=== PATIENT | female | born 1950 | race Caucasian/White ===

== ENCOUNTER 2017-03-03 23:18 | Inpatient (IN) | payer MEDICARE, BC ==
[~2017-03-03] VITALS: Ht 154.9 cm; Wt 92.1 kg
[~2017-03-03 23:18] MED LIST: ALBUTEROL2.5 MG/3 M INH; LOSARTAN POTASS25 MG ORAL
[2017-03-03] MEDS ORDERED: Acetaminophen 650 MG SUPP RECTAL ONE ×2 (23:24→23:30)
[2017-03-03] MEDS ORDERED: Solu-MEDROL 125mg Inj IVP ONE (23:30)
[2017-03-03] MEDS ORDERED: Albuterol ud Inhalation HHN ONE (23:30)
[2017-03-03] MEDS ORDERED: Ipratropium 0.02% Inh Soln 2.5ml UD HHN ONE (23:30)
[2017-03-03 23:35] VITALS: BP 82/46
[2017-03-03 23:37] LABS: BASOPHILS % (AUTO) 0.6 % (0.0-2.0); EOSINOPHILS % (AUTO) 0.3 % (0.0-3.0); MEAN CORPUSCULAR HEMOGLOBIN 32.2 PG (27.0-31.0); MEAN CORPUSCULAR VOLUME 101 FL (80-99); MEAN PLATELET VOLUME 7.6 FL (6.5-10.1); MONOCYTES % (AUTO) 5.2 % (1.0-10.0); NEUTROPHILS % (AUTO) 77.9 % (45.0-75.0); PLATELET COUNT 363 K/UL (150-450); RED BLOOD COUNT 5.21 M/UL (4.20-5.40); RED CELL DISTRIBUTION WIDTH 12.9 % (11.6-14.8); WHITE BLOOD COUNT 9.8 K/UL (4.8-10.8)
[2017-03-03 23:38] LABS: APPEARANCE,URINE SLIGHTLY CLOUDY; KETONES,URINE 1+ (NEGATIVE); LEUKOCYTE ESTERASE ,URINE 1+ (NEGATIVE); NITRITE,URINE POSITIVE (NEGATIVE); PH,URINE 5 (4.5-8.0); PROTEIN,URINE 2+ (NEGATIVE); UROBILINOGEN,URINE 1 MG/DL (0.0-1.0)
--- NOTE | 2017-03-03 23:45 | Emergency Room Report ---
History of Present Illness General Chief Complaint: Dyspnea/Respdistress Source: Family Member, EMS, PMD Present Illness HPI This is a 66-year-old Ethiopian female with a history of hypertension, COPD continued to smoke. She's also noncompliant with her medication. Her said he unable to get her to see a DrRenu for a long period of time. She presents with chief complaint respiratory failure and respiratory arrest. Onset for the last couple weeks but worse tonight per her . She had a hard time breathing so he called 911. Per EMS on room air pulse ox was 80%. She was very lethargic. They placed on see Without much success. There brought her here. On arrival she was stuporous, pale, agonal respiration. She was intubated right away. History is from her . I also talked with Dr. Choi on the phone regarding her history. Allergies: Coded Allergies: No Known Allergies (Unverified , 03/03/17) Patient History Past Medical History: see triage record, old chart reviewed, HTN, asthma, COPD Past Surgical History: other Pertinent Family History: none Social History: Reports: smoking Now: No Immunizations: other Reviewed Nursing Documentation: PMH: Agreed, PSxH: Agreed Nursing Documentation-PMH Hx Hypertension: Yes Hx Asthma: Yes Hx COPD: Yes Review of Systems Constitutional: Reports: weakness Eye: Denies: blurred vision, eye pain ENT: Denies: ear pain, nose congestion, throat swelling Respiratory: Reports: cough, shortness of breath Cardiovascular: Denies: chest pain, palpitations Gastrointestinal: Denies: abdominal pain, diarrhea, nausea, vomiting Musculoskeletal: Denies: back pain, joint pain Skin: Denies: rash Neurological: Denies: headache, numbness Endocrine: Denies: increased thirst, increased urine Hematologic/Lymphatic: Denies: easy bruising All Other Systems: negative except mentioned in HPI Physical Exam Vital Signs Date Time Temp Pulse Resp B/P Pulse Ox O2 Delivery O2 Flow Rate FiO2 03/03/17 23:14 107 32 121/95 80 15.0 03/03/17 23:31 100 vitals with fever, tachycardia and hypoxia Sp02 EP Interpretation: abnormal General Appearance: severe distress, obese, Stupor Head: normocephalic, atraumatic Eyes: bilateral eye EOMI, bilateral eye PERRL ENT: dry mucus membranes Neck: full range of motion, supple, no meningismus Respiratory: chest non-tender, decreased breath sounds, other - Severely diminished Cardiovascular #1: regular rate, rhythm, no murmur Gastrointestinal: normal bowel sounds, non tender, no mass, no organomegaly, no bruit, non-distended, other - Obese Musculoskeletal: back normal Neurologic: other - Unresponsive Skin: pallor, cyanosis Procedures Critical Care Time Critical Care Time Critical care is mandated in this patient who presented with respiratory arrest. Patient require my urgent intervention to attenuate the risks of respiratory collapse which may lead to cardiovascular collapse and . Critical care time is 75 minutes excluding any reportable procedure. Critical care time included evaluation, multiple reevaluation, looking at old charts, interpreting laboratory and diagnostic data, discussing case with patient and family and consultants, and charting. Intubation Intubation : Consent: Emergent Intubation Method: orotracheal Tube Size (cm): 7.5 Medications: Etomidate, Succinylcholine Breath Sounds after Intubation: equal Intubation Complications: no complications Post Intubation Xray: Yes Progress/Xray Impression: Endotracheal tube good position Attempts: One Patient Tolerated: Well Complications: None Medical Decision Making Diagnostic Impression: Primary Impression: Respiratory failure requiring intubation Additional Impressions: Respiratory failure with hypoxia Qualified Codes: J96.01 - Acute respiratory failure with hypoxia Metabolic acidosis Severe sepsis UTI (urinary tract infection) Qualified Codes: N30.00 - Acute cystitis without hematuria COPD with exacerbation Acute renal failure (ARF) Qualified Codes: N17.9 - Acute kidney failure, unspecified Proteinuria Morbid obesity with BMI of 40.0-44.9, adult Hyperkalemia, diminished renal excretion ER Course Patient presents with severe sepsis with multiorgan failure. She was intubated for airway protection. She is extremely acidotic. We'll collect acidosis and metabolic acidosis. Her hyperkalemia was treated. IV fluid given. Antibiotic started. She is slowly improving with increasing urination. She does have some movement. Diagnosis extremely poor. She is admitted to the ICU. Laboratory Tests Test 03/03/17 23:12 03/03/17 23:27 03/04/17 00:23 03/04/17 01:24 White Blood Count 9.8 K/UL (4.8-10.8) Red Blood Count 5.21 M/UL (4.20-5.40) Hemoglobin 16.8 G/DL (12.0-16.0) H Hematocrit 52.6 % (37.0-47.0) H Mean Corpuscular Volume 101 FL (80-99) H Mean Corpuscular Hemoglobin 32.2 PG (27.0-31.0) H Mean Corpuscular Hemoglobin Concent 32.0 G/DL (32.0-36.0) Red Cell Distribution Width 12.9 % (11.6-14.8) Platelet Count 363 K/UL (150-450) Mean Platelet Volume 7.6 FL (6.5-10.1) Neutrophils (%) (Auto) 77.9 % (45.0-75.0) H Lymphocytes (%) (Auto) 16.0 % (20.0-45.0) L Monocytes (%) (Auto) 5.2 % (1.0-10.0) Eosinophils (%) (Auto) 0.3 % (0.0-3.0) Basophils (%) (Auto) 0.6 % (0.0-2.0) Urine Color Yellow Urine Appearance Slightly cloudy Urine pH 5 (4.5-8.0) Urine Specific [place] 1.020 (1.005-1.035) Urine Protein 2+ (NEGATIVE) H Urine Glucose (UA) Negative (NEGATIVE) Urine Ketones 1+ (NEGATIVE) H Urine Occult Blood 1+ (NEGATIVE) H Urine Nitrite Positive (NEGATIVE) H Urine Bilirubin 1+ (NEGATIVE) H Urine Ictotest Negative Urine Urobilinogen 1 MG/DL (0.0-1.0) H Urine Leukocyte Esterase 1+ (NEGATIVE) H Urine RBC 0-2 /HPF (0 - 2) Urine WBC 0-2 /HPF (0 - 2) Urine Squamous Epithelial Cells Many /LPF (NONE/OCC) H Urine Bacteria Few /HPF (NONE) Sodium Level 133 mEQ/L (135-145) L 135 mEQ/L (135-145) Potassium Level 7.6 mEQ/L (3.4-4.9) *H 6.6 mEQ/L (3.4-4.9) *H Chloride Level 89 mEQ/L (98-107) L 97 mEQ/L (98-107) L Carbon Dioxide Level 7 mEQ/L (20-30) *L 6 mEQ/L (20-30) *L Anion Gap 37 (5-15) H 32 (5-15) H Blood Urea Nitrogen 37 mg/dL (7-23) H 33 mg/dL (7-23) H Creatinine 3.9 mg/dL (0.5-0.9) H 3.3 mg/dL (0.5-0.9) H Estimat Glomerular Filtration Rate 11.5 mL/min (>60) 13.9 mL/min (>60) Glucose Level 75 mg/dL (74-106) 122 mg/dL (74-106) H Lactic Acid Level 13.10 mmol/L (0.66-2.22) H 12.80 mmol/L (0.66-2.22) H Calcium Level 11.9 mg/dL (8.6-10.2) H 9.7 mg/dL (8.6-10.2) Total Bilirubin 0.7 mg/dL (0.0-1.2) Aspartate Amino Transf (AST/SGOT) 114 U/L (5-40) H Alanine Aminotransferase (ALT/SGPT) 597 U/L (3-33) H Alkaline Phosphatase 108 U/L (35-104) H Total Creatine Kinase 773 U/L (26-140) H Creatine Kinase MB 5.0 ng/mL (< 3.8) H Creatine Kinase MB Relative Index 0.6 Troponin I < 0.30 ng/mL (<=0.30) Total Protein 7.7 g/dL (6.6-8.7) Albumin 3.5 g/dL (3.5-5.2) Globulin 4.2 g/dL Albumin/Globulin Ratio 0.8 (1.0-2.7) L Prothrombin Time 14.4 SEC (9.30-11.50) H Prothromb Time International Ratio 1.4 (0.9-1.1) H Activated Partial Thromboplast Time 36 SEC (23-33) H Lab Results Impression labs with severe acidosis, renal failure, hyperkalemia EKG Diagnostic Results Rate: normal, tachycardiac Rhythm: NSR ST Segments: no acute changes Rhythm Strip Diag. Results EP Interpretation: yes Rate: 110 Rhythm: NSR, no PVC's, no ectopy Chest X-Ray Diagnostic Results EP Interpretation: Yes Findings: no effusion, no pneumothorax, other - ETT and NGT in good position. Increased interstitial markings. Number of Views: 1 Last Vital Signs Date Time Temp Pulse Resp B/P Pulse Ox O2 Delivery O2 Flow Rate FiO2 03/03/17 23:38 100 03/03/17 23:31 82 16 03/03/17 23:14 121/95 80 15.0 Status: improved Disposition: ADMITTED INPATIENT Condition: Critical ROSEMARY COX M.D. Mar 03, 2017 23:45
[2017-03-03 23:48] LABS: BACTERIA,URINE FEW /HPF; ICTOTEST NEGATIVE; RBC,URINE 0-2 /HPF (0 - 2); SQUAMOUS EPITHELIAL CELL,UR MANY /LPF (NONE/OCC); WBC,URINE 0-2 /HPF (0 - 2)
[2017-03-03 23:52] LABS: ALBUMIN/GLOBULIN RATIO 0.8 (1.0-2.7); CALCIUM 11.9 mg/dL (8.6-10.2); CREATININE 3.9 mg/dL (0.5-0.9); GLOMERULAR FILTRATION RATE 11.5 mL/min (>60); TOTAL PROTEIN 7.7 g/dL (6.6-8.7); TROPONIN I < 0.30 ng/mL (<=0.30)
[2017-03-03 23:54] LABS: INR 1.4 (0.9-1.1); PROTHROMBIN TIME 14.4 SEC (9.30-11.50)
[2017-03-03] MEDS ORDERED: Zosyn 3.375gm inj ONE (23:56)
[2017-03-03 23:58] LABS: POTASSIUM 7.6 mEQ/L (3.4-4.9); REFLEX LACTIC ACID YES OR NO YES
[2017-03-04] VITALS (39 sets, daily range): BP systolic 0–251; BP diastolic 0–173
[2017-03-04] MEDS ORDERED: Piperacillin/Tazobactam 3.375 GM in NS 110 ML IVPB ONE ×2
[2017-03-04] MEDS ORDERED: Calcium Gluconate 1gm/10ml vial ONE ×2 (00:12→03:18)
[2017-03-04] MEDS ORDERED: Albuterol ud Inhalation HHN ONE (00:15)
[2017-03-04] MEDS ORDERED: Calcium Gluconate 10% 1 GM in NS 110 ML IVPB ONE (00:15)
[2017-03-04 01:08] LABS: ABG ALLEN TEST POSITIVE; ABG BASE EXCESS -27.5; ABG PCO2 27.5 mmHg (35.0-45.0)
[2017-03-04] MEDS ORDERED: Sodium Bicarbonate 8.4% 50ml Carp ONE ×2 (01:26→10:19)
[2017-03-04] MEDS ORDERED: Sodium Bicarbonate 8.4% 50ml Inj IV ONE ×2 (01:30→09:00)
[2017-03-04 01:56] LABS: CALCIUM 9.7 mg/dL (8.6-10.2); CREATININE 3.3 mg/dL (0.5-0.9); GLOMERULAR FILTRATION RATE 13.9 mL/min (>60)
[2017-03-04 02:04] LABS: POTASSIUM 6.6 mEQ/L (3.4-4.9)
[2017-03-04] MEDS ORDERED: Miralax 17gm pkt ORAL PRN (03:00)
[2017-03-04] MEDS ORDERED: LORazepam Inj 2mg/ml 1ml IV PRN (03:00)
[2017-03-04] MEDS ORDERED: DuoNeb 0.5-3(2.5)mg/3ml neb HHN PRN (03:00)
[2017-03-04] MEDS ORDERED: Sodium Polystyrene Sulfonate 15gm Powder ORAL ONE (03:00)
[2017-03-04] MEDS ORDERED: Morphine Sulfate 4mg/ml Inj IVP PRN (03:00)
[2017-03-04] MEDS ORDERED: Calcium Gluconate 1gm/10ml vial IVP ONE (03:00)
[2017-03-04] MEDS ORDERED: Levophed 4mg/4mL Inj IV ONE ×2 (03:31→04:15)
[2017-03-04] MEDS ORDERED: Vancomycin 1.5 GM in D5W 325 ML IVPB ONE (03:45)
[2017-03-04] MEDS ORDERED: Amikacin Rx to dose MISC PRN (03:45)
[2017-03-04] MEDS ORDERED: Ertapenem (INVanz) Inj ONE (04:10)
[2017-03-04] MEDS ORDERED: Ertapenem 0.5 GM in NS 55 ML IV SCH (05:00)
[2017-03-04 06:03] LABS: BASOPHILS % (AUTO) 1.5 % (0.0-2.0); EOSINOPHILS % (AUTO) 0.3 % (0.0-3.0); LYMPHOCYTES % (AUTO) 24.2 % (20.0-45.0); MEAN CORPUSCULAR HEMOGLOBIN 32.1 PG (27.0-31.0); MEAN CORPUSCULAR HGB CONC 31.3 G/DL (32.0-36.0); MEAN CORPUSCULAR VOLUME 103 FL (80-99); MEAN PLATELET VOLUME 7.2 FL (6.5-10.1); MONOCYTES % (AUTO) 4.7 % (1.0-10.0); NEUTROPHILS % (AUTO) 69.3 % (45.0-75.0); PLATELET COUNT 198 K/UL (150-450); RED BLOOD COUNT 3.74 M/UL (4.20-5.40); RED CELL DISTRIBUTION WIDTH 13.1 % (11.6-14.8); WHITE BLOOD COUNT 6.7 K/UL (4.8-10.8)
[2017-03-04 06:19] LABS: ALBUMIN/GLOBULIN RATIO 0.5 (1.0-2.7); CALCIUM 6.9 mg/dL (8.6-10.2); GLOMERULAR FILTRATION RATE 15.5 mL/min (>60); TOTAL PROTEIN 4.3 g/dL (6.6-8.7)
[2017-03-04 06:23] LABS: REFLEX LACTIC ACID YES OR NO YES
[2017-03-04 06:27] LABS: POTASSIUM 6.8 mEQ/L (3.4-4.9)
[2017-03-04] MEDS ORDERED: Heparin 5000 units/ml inj SUBQ SCH (09:00)
[2017-03-04] MEDS ORDERED: Heparin 2000 units/Ns 1000ml INJ ONE (09:00)
[2017-03-04] MEDS ORDERED: Lidocaine 1% Plain 30 ml INJ ONE (09:00)
[2017-03-04 09:45] LABS: EOSINOPHILS % (AUTO) 0.2 % (0.0-3.0); LYMPHOCYTES % (AUTO) 31.1 % (20.0-45.0); MEAN CORPUSCULAR HGB CONC 30.6 G/DL (32.0-36.0); MEAN CORPUSCULAR VOLUME 105 FL (80-99); MEAN PLATELET VOLUME 7.8 FL (6.5-10.1); MONOCYTES % (AUTO) 4.5 % (1.0-10.0); NEUTROPHILS % (AUTO) 63.2 % (45.0-75.0); PLATELET COUNT 104 K/UL (150-450); RED BLOOD COUNT 2.79 M/UL (4.20-5.40); RED CELL DISTRIBUTION WIDTH 13.6 % (11.6-14.8); WHITE BLOOD COUNT 7.5 K/UL (4.8-10.8)
[2017-03-04 09:55] LABS: CALCIUM 10.1 mg/dL (8.6-10.2); CREATININE 3.3 mg/dL (0.5-0.9); GLOMERULAR FILTRATION RATE 13.9 mL/min (>60)
[2017-03-04 10:01] LABS: POTASSIUM 7.5 mEQ/L (3.4-4.9)
--- NOTE | 2017-03-04 10:11 | History and Physical ---
History of Present Illness General Date patient seen: Mar 04, 2017 Reason for Hospitalization: Dyspnea/Respdistress Present Illness HPI 66-year-old female with a history of hypertension, COPD, noncompliant with her medication, presented with chief complaint respiratory failure and multi- organ failure. She has been sick for a few weeks but worse last night per her . She had a hard time breathing so he called 911. Per EMS on room air pulse ox was 80%. She was very lethargic. On arrival to ER she was stuporous , pale, agonal respiration. She was intubated right away. She coded twice already since admission. Currently she is comatose, on maxed out levophed drip. at the bed site. Allergies: Allergies: Coded Allergies: No Known Allergies (Unverified , 03/03/17) Medication History Scheduled Losartan Potassium* (Losartan Potassium*), 25 MG ORAL DAILY, (Reported) Scheduled PRN Albuterol Sulfate* (Albuterol Sulfate Hhn*), 3 ML INH Q6H PRN for Shortness of Breath, (Reported) Patient History Healthcare decision maker Silvano Resuscitation status Full Code Advanced Directive on File No Past Medical/Surgical History Past Medical/Surgical History: (1) HTN (hypertension) (2) COPD (chronic obstructive pulmonary disease) Review of Systems All Other Systems: negative except mentioned in HPI Physical Exam General Appearance: WD/WN, no apparent distress Lines, tubes and drains: peripheral HEENT: normocephalic Neck: non-tender, normal alignment Respiratory/Chest: chest wall non-tender, lungs clear Cardiovascular/Chest: normal peripheral pulses, normal rate Abdomen: normal bowel sounds, non tender Genitourinary/Rectal: normal genital exam, normal rectal exam Extremities: normal range of motion Last 24 Hour Vital Signs Date Time Temp Pulse Resp B/P Pulse Ox O2 Delivery O2 Flow Rate FiO2 03/04/17 09:10 128 16 100 03/04/17 07:39 74 17 100 03/04/17 07:30 97.3 74 16 97/63 74 Mechanical Ventilator 100 03/04/17 07:30 97/63 03/04/17 07:00 103/64 03/04/17 06:45 102 30 120/55 100 Mechanical Ventilator 60 03/04/17 06:30 102 30 61/18 100 Mechanical Ventilator 60 03/04/17 06:15 104 27 77/75 100 Mechanical Ventilator 60 03/04/17 06:00 104 27 122/75 100 Mechanical Ventilator 60 03/04/17 06:00 77/43 03/04/17 05:45 109 27 107/74 100 Mechanical Ventilator 60 03/04/17 05:30 109 29 138/96 100 Mechanical Ventilator 60 03/04/17 05:15 109 27 161/71 100 Mechanical Ventilator 60 03/04/17 05:09 109 24 60 03/04/17 05:00 107/74 03/04/17 05:00 109 27 180/119 100 Mechanical Ventilator 60 03/04/17 04:45 109 27 131/101 100 Mechanical Ventilator 60 03/04/17 04:30 92/50 03/04/17 04:30 106 27 99/67 100 Mechanical Ventilator 60 03/04/17 04:15 106 27 96/66 100 Mechanical Ventilator 60 03/04/17 04:00 98.5 03/04/17 04:00 106 27 96/66 100 Mechanical Ventilator 60 03/04/17 03:45 108 27 98/58 100 Mechanical Ventilator 60 03/04/17 03:30 108 27 88/61 100 Mechanical Ventilator 60 03/04/17 03:15 109 27 40/28 100 Mechanical Ventilator 60 03/04/17 03:06 110 28 60 03/04/17 03:00 109 27 75/24 100 Mechanical Ventilator 60 03/04/17 02:45 109 27 75/52 100 Mechanical Ventilator 60 03/04/17 02:30 109 27 69/24 100 Mechanical Ventilator 60 03/04/17 02:30 60 03/04/17 02:15 110 27 93/67 100 Mechanical Ventilator 60 03/04/17 02:08 109 03/04/17 02:00 98.7 110 25 136/89 100 Mechanical Ventilator 60 03/04/17 01:52 101.3 117 28 107/55 100 Mechanical Ventilator 15.0 60 03/04/17 01:52 101.3 117 28 107/55 100 Mechanical Ventilator 15.0 60 03/04/17 01:37 101.3 112 28 84/20 100 Mechanical Ventilator 15.0 60 03/04/17 01:17 15.0 60 03/04/17 01:15 107 28 100 Mechanical Ventilator 60 03/04/17 01:14 108 28 60 03/04/17 01:00 60 03/04/17 01:00 108 28 100 Mechanical Ventilator 60 03/04/17 00:49 101.3 105 16 128/91 100 Mechanical Ventilator 15.0 100 03/04/17 00:48 101.3 03/03/17 23:46 117 16 100 Mechanical Ventilator 100 03/03/17 23:38 100 03/03/17 23:35 104.4 117 16 82/46 100 Mechanical Ventilator 15.0 100 03/03/17 23:35 117 16 15.0 100 03/03/17 23:31 82 16 100 03/03/17 23:30 100 03/03/17 23:30 115 16 100 Mechanical Ventilator 100 03/03/17 23:14 107 32 121/95 80 15.0 Intake and Output 03/03/17 03/04/17 19:00 07:00 Intake Total 7877.0 ml Output Total 215 ml Balance 7662.0 ml Intake Oral 0 ml IV Total 4877.0 ml Other 3000 ml Output Urine Total 215 ml Laboratory Tests Test 03/03/17 23:12 03/03/17 23:27 03/04/17 00:23 03/04/17 01:24 White Blood Count 9.8 K/UL (4.8-10.8) Red Blood Count 5.21 M/UL (4.20-5.40) Hemoglobin 16.8 G/DL (12.0-16.0) H Hematocrit 52.6 % (37.0-47.0) H Mean Corpuscular Volume 101 FL (80-99) H Mean Corpuscular Hemoglobin 32.2 PG (27.0-31.0) H Mean Corpuscular Hemoglobin Concent 32.0 G/DL (32.0-36.0) Red Cell Distribution Width 12.9 % (11.6-14.8) Platelet Count 363 K/UL (150-450) Mean Platelet Volume 7.6 FL (6.5-10.1) Neutrophils (%) (Auto) 77.9 % (45.0-75.0) H Lymphocytes (%) (Auto) 16.0 % (20.0-45.0) L Monocytes (%) (Auto) 5.2 % (1.0-10.0) Eosinophils (%) (Auto) 0.3 % (0.0-3.0) Basophils (%) (Auto) 0.6 % (0.0-2.0) Urine Color Yellow Urine Appearance Slightly cloudy Urine pH 5 (4.5-8.0) Urine Specific [place] 1.020 (1.005-1.035) Urine Protein 2+ (NEGATIVE) H Urine Glucose (UA) Negative (NEGATIVE) Urine Ketones 1+ (NEGATIVE) H Urine Occult Blood 1+ (NEGATIVE) H Urine Nitrite Positive (NEGATIVE) H Urine Bilirubin 1+ (NEGATIVE) H Urine Ictotest Negative Urine Urobilinogen 1 MG/DL (0.0-1.0) H Urine Leukocyte Esterase 1+ (NEGATIVE) H Urine RBC 0-2 /HPF (0 - 2) Urine WBC 0-2 /HPF (0 - 2) Urine Squamous Epithelial Cells Many /LPF (NONE/OCC) H Urine Bacteria Few /HPF (NONE) Sodium Level 133 mEQ/L (135-145) L 135 mEQ/L (135-145) Potassium Level 7.6 mEQ/L (3.4-4.9) *H 6.6 mEQ/L (3.4-4.9) *H Chloride Level 89 mEQ/L (98-107) L 97 mEQ/L (98-107) L Carbon Dioxide Level 7 mEQ/L (20-30) *L 6 mEQ/L (20-30) *L Anion Gap 37 (5-15) H 32 (5-15) H Blood Urea Nitrogen 37 mg/dL (7-23) H 33 mg/dL (7-23) H Creatinine 3.9 mg/dL (0.5-0.9) H 3.3 mg/dL (0.5-0.9) H Estimat Glomerular Filtration Rate 11.5 mL/min (>60) 13.9 mL/min (>60) Glucose Level 75 mg/dL (74-106) 122 mg/dL (74-106) H Lactic Acid Level 13.10 mmol/L (0.66-2.22) H 12.80 mmol/L (0.66-2.22) H Calcium Level 11.9 mg/dL (8.6-10.2) H 9.7 mg/dL (8.6-10.2) Total Bilirubin 0.7 mg/dL (0.0-1.2) Aspartate Amino Transf (AST/SGOT) 114 U/L (5-40) H Alanine Aminotransferase (ALT/SGPT) 597 U/L (3-33) H Alkaline Phosphatase 108 U/L (35-104) H Total Creatine Kinase 773 U/L (26-140) H Creatine Kinase MB 5.0 ng/mL (< 3.8) H Creatine Kinase MB Relative Index 0.6 Troponin I < 0.30 ng/mL (<=0.30) Total Protein 7.7 g/dL (6.6-8.7) Albumin 3.5 g/dL (3.5-5.2) Globulin 4.2 g/dL Albumin/Globulin Ratio 0.8 (1.0-2.7) L Prothrombin Time 14.4 SEC (9.30-11.50) H Prothromb Time International Ratio 1.4 (0.9-1.1) H Activated Partial Thromboplast Time 36 SEC (23-33) H Test 03/04/17 05:50 03/04/17 09:20 White Blood Count 6.7 K/UL (4.8-10.8) 7.5 K/UL (4.8-10.8) Red Blood Count 3.74 M/UL (4.20-5.40) L 2.79 M/UL (4.20-5.40) L Hemoglobin 12.0 G/DL (12.0-16.0) 8.9 G/DL (12.0-16.0) L Hematocrit 38.4 % (37.0-47.0) 29.2 % (37.0-47.0) L Mean Corpuscular Volume 103 FL (80-99) H 105 FL (80-99) H Mean Corpuscular Hemoglobin 32.1 PG (27.0-31.0) H 32.0 PG (27.0-31.0) H Mean Corpuscular Hemoglobin Concent 31.3 G/DL (32.0-36.0) L 30.6 G/DL (32.0-36.0) L Red Cell Distribution Width 13.1 % (11.6-14.8) 13.6 % (11.6-14.8) Platelet Count 198 K/UL (150-450) 104 K/UL (150-450) L Mean Platelet Volume 7.2 FL (6.5-10.1) 7.8 FL (6.5-10.1) Neutrophils (%) (Auto) 69.3 % (45.0-75.0) 63.2 % (45.0-75.0) Lymphocytes (%) (Auto) 24.2 % (20.0-45.0) 31.1 % (20.0-45.0) Monocytes (%) (Auto) 4.7 % (1.0-10.0) 4.5 % (1.0-10.0) Eosinophils (%) (Auto) 0.3 % (0.0-3.0) 0.2 % (0.0-3.0) Basophils (%) (Auto) 1.5 % (0.0-2.0) 1.0 % (0.0-2.0) Sodium Level 139 mEQ/L (135-145) 140 mEQ/L (135-145) Potassium Level 6.8 mEQ/L (3.4-4.9) *H 7.5 mEQ/L (3.4-4.9) *H Chloride Level 103 mEQ/L (98-107) 101 mEQ/L (98-107) Carbon Dioxide Level 8 mEQ/L (20-30) *L 12 mEQ/L (20-30) L Anion Gap 28 (5-15) H 27 (5-15) H Blood Urea Nitrogen 32 mg/dL (7-23) H 30 mg/dL (7-23) H Creatinine 3.0 mg/dL (0.5-0.9) H 3.3 mg/dL (0.5-0.9) H Estimat Glomerular Filtration Rate 15.5 mL/min (>60) 13.9 mL/min (>60) Glucose Level 179 mg/dL (74-106) H 447 mg/dL (74-106) #H Lactic Acid Level 11.30 mmol/L (0.66-2.22) H Calcium Level 6.9 mg/dL (8.6-10.2) #L 10.1 mg/dL (8.6-10.2) # Total Bilirubin 0.9 mg/dL (0.0-1.2) Aspartate Amino Transf (AST/SGOT) 680 U/L (5-40) H Alanine Aminotransferase (ALT/SGPT) 548 U/L (3-33) H Alkaline Phosphatase 130 U/L (35-104) H Total Protein 4.3 g/dL (6.6-8.7) #L Albumin 1.5 g/dL (3.5-5.2) L Globulin 2.8 g/dL Albumin/Globulin Ratio 0.5 (1.0-2.7) L Height (Feet): 5 Height (Inches): 1.00 Weight (Pounds): 203 Medications Current Medications Medications (Trade) Dose Ordered Sig/Marilee Route PRN Reason Start Time Stop Time Status Last Admin Dose Admin Acetaminophen (Tylenol) 650 mg Q4H PRN ORAL fever 03/04/17 03:00 04/03/17 02:59 Albuterol/ Ipratropium 3 ml 3 ml EVERY 4 HOURS PRN HHN Shortness of Breath 03/04/17 03:00 03/09/17 02:59 Amikacin Protocol 1 ea 1 ea DAILY PRN MISC PROTOCHOL 03/04/17 03:45 04/03/17 03:44 Amikacin Sulfate/ Sodium Chloride (Amikin/Sodium Chloride) 113 ml @ 113 mls/hr ONCE ONCE IV 03/05/17 06:00 03/05/17 06:59 Ertapenem 0.5 gm/ Sodium Chloride 55 ml @ 110 mls/hr Q24H IV 03/04/17 05:00 03/09/17 04:59 03/04/17 04:31 Heparin Sodium (Porcine) (Heparin 5000 units/ml) 5,000 units EVERY 12 HOURS SUBQ 03/04/17 09:00 04/03/17 08:59 Lorazepam 2 mg 2 mg EVERY 2 HOURS PRN IV For Anxiety 03/04/17 03:00 03/11/17 02:59 Morphine Sulfate (Morphine Sulfate) 4 mg EVERY 4 HOURS PRN IVP Severe Pain (Pain Scale 7-10) 03/04/17 03:00 03/11/17 02:59 Norepinephrine Bitartrate/ Dextrose (Levophed/D5W) 254 ml @ 0 mls/hr Q24H IV 03/04/17 03:00 04/03/17 02:59 03/04/17 04:30 Ondansetron HCl (Zofran) 4 mg Q6H PRN IVP Nausea & Vomiting 4/4/17 03:00 04/03/17 02:59 Polyethylene Glycol (Miralax) 17 gm DAILYPRN PRN ORAL Constipation 03/04/17 03:00 04/03/17 02:59 Sodium Chloride (Sodium Chloride 1000ml bag) 1,000 ml @ 250 mls/hr Q4H IVLG 03/04/17 23:39 04/03/17 23:38 UNV Vancomycin HCl (Vanco rx to dose) 1 ea DAILY PRN MISC PROTOCHOL 03/04/17 03:45 04/03/17 03:44 Assessment/Plan Problem List: (1) Respiratory failure requiring intubation ICD Codes: J96.90 - Respiratory failure, unspecified, unspecified whether with hypoxia or hypercapnia; Z68.41 - Body mass index (BMI) 40.0-44.9, adult SNOMED: 794556186, [id number] (2) Acute renal failure (ARF) ICD Codes: N17.9 - Acute kidney failure, unspecified SNOMED: 22932646, 295541617 Qualifiers: Qualified Codes: N17.9 - Acute kidney failure, unspecified (3) Hyperkalemia, diminished renal excretion ICD Codes: E87.5 - Hyperkalemia SNOMED: 63533152, 766581395 (4) Morbid obesity with BMI of 40.0-44.9, adult ICD Codes: E66.01 - Morbid (severe) obesity due to excess calories; Z68.41 - Body mass index (BMI) 40.0-44.9, adult SNOMED: 538245270, 703950151 (5) Severe sepsis ICD Codes: A41.9 - Sepsis, unspecified organism; R65.20 - Severe sepsis without septic shock SNOMED: 43399010, 720946679 Assessment/Plan IV fluids IV antibiotics HD access renal /ID consult dvt prophylaxis' titrate vent abg, cbc cxr daily poor prognosis ALBERTO GARCIA Mar 04, 2017 10:11
[2017-03-04] MEDS ORDERED: EPINEPHrine 1mg/10ml carp IV ONE (10:19)
[2017-03-04] MEDS ORDERED: Calcium Chloride 10% 10ml carpuject IVP ONE (10:19)
[2017-03-04] MEDS ORDERED: D5W 275ml ONE (10:19)
[2017-03-04] MEDS ORDERED: Etomidate 40mg/20ml Inj IV ONE (10:19)
[2017-03-04] MEDS ORDERED: Succinylcholine 20mg/ml 10ml vial ONE (10:19)
--- NOTE | 2017-03-04 10:35 | General Progress Note ---
Progress Note Progress Note Pt developed bradycardia and cardiac arrest. that was her third arrest in the last 12 hours. She was already brain with fixed pupills before the code. We ran the code while the was in close by. We finished the code. Pt never gained any pulse. ALBERTO GARCIA Mar 04, 2017 10:35
[2017-03-04] MEDS ORDERED: Amikacin 750 MG in NS 110 ML IV ONE (11:00)
--- NOTE | 2017-03-04 11:44 | Diagnostic Imaging Report ---
Indication: SOB, status post intubation Technique: One view of the chest Comparison: none Findings: There is satisfactory position of endotracheal and nasogastric tubes. The lungs and pleural spaces are clear. Heart size is normal. Impression: Satisfactory endotracheal and nasogastric intubation No acute pulmonary process
--- NOTE | 2017-03-04 14:01 | Emergency Room Report ---
History of Present Illness General Chief Complaint: Dyspnea/Respdistress Source: Family Member, EMS, PMD Present Illness Allergies: Coded Allergies: No Known Allergies (Unverified , 03/03/17) Patient History Now: No Nursing Documentation-PMH Hx Hypertension: Yes Hx Asthma: Yes Hx COPD: Yes Physical Exam Vital Signs Date Time Temp Pulse Resp B/P Pulse Ox O2 Delivery O2 Flow Rate FiO2 03/03/17 23:14 107 32 121/95 80 15.0 03/03/17 23:30 Mechanical Ventilator 100 03/03/17 23:35 104.4 Procedures CPR/Code Blue CPR/Code Blue Narrative I was called of service to a CODE BLUE Upon arrival the patient is in asystole There is no cardiac activity and no spontaneous respirations ACLS protocol in process Please refer to the note for the full specifics medication Reviewing the patient's chart however it does appear the patient has multisystem failure With hyperkalemia Patient's Accu-Chek also reveals a low glucose Patient was provided with calcium chloride, sodium bicarbonate Glucose After further ACLS and intervention patient did regain pulses Patient has palpable pulses and blood pressure is at 170 systolic I did make contact with the patient's primary physician And at this time the patient appears to have blood pressure and heart rate back And the code was terminated and care in the back to primary physician Medical Decision Making Diagnostic Impression: Primary Impression: Respiratory failure requiring intubation Additional Impressions: Respiratory failure with hypoxia Morbid obesity with BMI of 40.0-44.9, adult Severe sepsis Proteinuria UTI (urinary tract infection) Metabolic acidosis Acute renal failure (ARF) COPD with exacerbation Hyperkalemia, diminished renal excretion Last Vital Signs Date Time Temp Pulse Resp B/P Pulse Ox O2 Delivery O2 Flow Rate FiO2 03/04/17 10:21 0/0 03/04/17 10:20 0 16 0 Mechanical Ventilator 100 03/04/17 07:30 97.3 03/04/17 01:52 15.0 Disposition: ADMITTED INPATIENT Condition: Critical Referrals: KIYA CARNES (PCP) ALEJANDRO LEE D.O. Mar 04, 2017 14:01
--- NOTE | 2017-03-04 14:02 | Emergency Room Report ---
History of Present Illness General Chief Complaint: Dyspnea/Respdistress Source: Family Member, EMS, PMD Present Illness Allergies: Coded Allergies: No Known Allergies (Unverified , 03/03/17) Patient History Now: No Nursing Documentation-PMH Hx Hypertension: Yes Hx Asthma: Yes Hx COPD: Yes Physical Exam Vital Signs Date Time Temp Pulse Resp B/P Pulse Ox O2 Delivery O2 Flow Rate FiO2 03/03/17 23:14 107 32 121/95 80 15.0 03/03/17 23:30 Mechanical Ventilator 100 03/03/17 23:35 104.4 Procedures CPR/Code Blue CPR/Code Blue Narrative Please note that this is the second CODE BLUE note I was called initially in the morning for CODE BLUE on this patient After approximately 1-1/2 hours second CODE BLUE was called Upon arrival to the floor the patient again is in asystole No signs of life Patient again had medication regarding possible hyperkalemia and ACLS protocol Please refer to no supple specifics Patient again regained palpable pulses and appropriate blood pressure documented I did make contact with her primary physician again And care and is back to the admitting physician mortgage closing clerk Medical Decision Making Diagnostic Impression: Primary Impression: Respiratory failure requiring intubation Additional Impressions: Respiratory failure with hypoxia Morbid obesity with BMI of 40.0-44.9, adult Severe sepsis Proteinuria UTI (urinary tract infection) Metabolic acidosis Acute renal failure (ARF) COPD with exacerbation Hyperkalemia, diminished renal excretion Last Vital Signs Date Time Temp Pulse Resp B/P Pulse Ox O2 Delivery O2 Flow Rate FiO2 03/04/17 10:21 0/0 03/04/17 10:20 0 16 0 Mechanical Ventilator 100 03/04/17 07:30 97.3 03/04/17 01:52 15.0 Disposition: ADMITTED INPATIENT Condition: Critical Referrals: KIYA CARNES (PCP) ALEJANDRO LEE D.O. Mar 04, 2017 14:02
[2017-03-04] MEDS ORDERED: Vancomycin 1 GM in D5W 275 ML IV SCH (23:45)
--- NOTE | 2017-03-05 19:52 | Discharge Summary ---
Discharge Summary Hospital Course Date of Admission Mar 04, 2017 at 00:13 Date of Discharge Mar 04, 2017 at 10:20 Admitting Diagnosis RESP DISTRESS HPI Olive Aguila is a 66 year old female who was admitted on Mar 04, 2017 at 00:13 for Respiratory Distress Hospital Course [id number] Discharge Discharge Disposition Patient Discharge Diagnoses: Karen Cooper NP Mar 05, 2017 19:52
--- NOTE | 2017-03-05 23:13 | Cardiology Report ---
APPROVED REPORT EKG Measurement Heart [id number] Sinus tachycardia Left anterior fascicular block Lateral infarct, age undetermined Abnormal ECG
--- NOTE | 2017-03-06 01:38 | Discharge Summary 2 SIG ---
DATE OF ADMISSION: 03/04/2017 DATE OF DISCHARGE: 03/04/2017 BRIEF SUMMARY: The patient was an unfortunate 66-year-old female who has history of hypertension, COPD, and noncompliant with her medications, presented with chief complaint of respiratory failure and multiorgan failure. She has been sick for a few weeks, but got worse and had hard time breathing. Paramedics was called in. Pulse ox was down to 80% and the patient was lethargic. On arrival to ED, she was stuporous, pale, and had agonal respirations. She was immediately orally intubated and had coded twice. She has been given IV pressors and has been maxed out on Levophed drip. She continued to have poor prognosis and again had another Code Blue. Resuscitative efforts were unsuccessful and the patient . FINAL DIAGNOSES: 1. Severe sepsis. 2. Acute respiratory failure, requiring intubation. 3. Acute renal failure and multiorgan failure. 4. Hyperkalemia. 5. Morbid obesity. Kavon Noel M.D. I have been assigned to dictate discharge summary on this account and I was not involved in the patient's management. Karen Cooper N.P. DR: BRENDA JOB#: [id number] CC:
== END 2017-03-04 10:20 | disposition expired | DRG 871 ==
LOC: ENRESERVDT → ENRESERVTM → EDBD 23:18 → EMR 23:31 → ICU 03-04 00:13 → EDBEDREQ 03-04 00:42
DX: A41.9 Sepsis, unspecified organism (principal); J96.01 Acute respiratory failure with hypoxia; R40.20 Unspecified coma; N17.9 Acute kidney failure, unspecified; Z68.41 Body mass index [BMI] 40.0-44.9, adult; J44.9 Chronic obstructive pulmonary disease, unspecified; R65.20 Severe sepsis without septic shock; E87.5 Hyperkalemia; E66.01 Morbid (severe) obesity due to excess calories; F17.200 Nicotine dependence, unspecified, uncomplicated; Z91.14 Patient's other noncompliance with medication regimen; I10 Essential (primary) hypertension; J45.909 Unspecified asthma, uncomplicated; I46.9 Cardiac arrest, cause unspecified
CPT/HCPCS: 36415; 36600; 71010; 80048; 80053; 81003; 82550; 82553; 82803; 82962; 83605; 84484; 85025; 85610; 85730; 87040; 87081; 92950; 93005; 94002; 94003; 94640; J0171